=== PATIENT | male | born 1950 | race Caucasian/White ===

== ENCOUNTER 2017-05-18 14:46 | Emergency (ER) | payer MEDICARE, OTHER ==
--- NOTE | 2017-05-18 15:45 | ER PHYSICIAN DOCUMENTATION ---
Physician Documentation [facility] Name:Abe Still Age:67 yrs Sex:Male :1950 Arrival Date:05/18/2017 Time:14:46 Bed6 Private MD:Nguyễn Bearden ED, John Disposition: 05/18/17 15:36 Discharged to Home/Self Care. Impression: Lung Contusion. - Condition is Good. - Discharge Instructions: CONTUSION Chest Wall - CHEST WALL CONTUSION. - Medical Reconciliation form form. - Follow up: Nguyễn Bearden MD; When: As needed; Reason: Continuance of care. - Problem is new. - Symptoms have improved. HPI: 05/18 15:43 This 67 yrs old Male presents to ER via Private Vehicle with complaints of jm Back Pain. 15:43 The patient presents with pain that is acute, and an injury. The symptoms are located jm in the right subscapular area. Onset: The symptoms/episode began/occurred 2 hour(s) ago. The problem was sustained from a direct blow, during a fall. Modifying factors: the patient symptoms are aggravated by any movement, bending. Severity of symptoms: in the emergency department the symptoms have improved, moderately, after ibuprofen. The patient has not experienced similar symptoms in the past. Pt here to get looked at after he suffered a fall while standing on the toilet. Pt thinks he hit the side of the bathtub when he fell, injuring his R chest/back. He's having trouble locating the pain after the ibuprofen. Pt also twisted his neck, but that too is feeling better. . Historical: - Allergies: Erythromycin; - Home Meds: 1. losartan 50 mg oral tab 1 tab once daily 2. Acid Controller 10 mg oral tab 1 tab once daily as needed 3. ibuprofen 200 mg oral cap 1 cap every 4-6 hours as needed - PMHx: [place] virus; Enlarged Prostate; Dyslipidemia; GOUT; Hypertension; CATARACTS; GERD; BPH; Allergic rhinitis; OTITIS MEDIA; - PSHx: TONSILLECTOMY; Ear Surgery; - Tetanus: < 10 years. - Ebola Screening: : Patient negative for fever greater than or equal to 101.5 degrees Fahrenheit, and additional compatible Ebola Virus Disease symptoms. Patient denies exposure to infectious person. Patient denies travel to an Ebola-affected area in the 21 days before illness onset. . - Immunization history: Pneumococcal vaccine is up to date, Flu Vaccine < 1 year. - Social history: Smoking status: Patient states former smoker of tobacco. ROS: 15:45 Constitutional: Negative for fever. jm 15:45 Cardiovascular: Positive for chest pain, with movement, of the right lateral anterior chest and right lateral posterior chest. 15:45 Back: Positive for injury or acute deformity. 15:45 Skin: Positive for ecchymosis. 15:45 Neuro: Negative for dizziness, headache, loss of consciousness, numbness, weakness. 15:45 All other systems are negative. Exam: 15:45 Constitutional: The patient appears alert, awake. 15:45 Eyes: Periorbital structures: appear normal, Pupils: equal, round, and reactive to light and accomodation, Extraocular movements: intact throughout. 15:45 Neck: External neck: tenderness, that is mild, of the right mid cervical area, C-spine: appears grossly normal, Thyroid: appears normal. 15:45 Cardiovascular: Rate: normal, Rhythm: regular. 15:45 Respiratory: Respirations: normal, Breath sounds: are normal. 15:45 Back: pain, that is mild, of the right subscapular area, CVA tenderness, is absent. 15:45 Musculoskeletal/extremity: Circulation is intact in all extremities. Weight bearing: able to fully bear weight. 15:45 Neuro: Mentation: is normal, Memory: is normal, Cranial nerves: CN II- XII are normal as tested, Cerebellar function: normal finger to nose testing, Motor: strength is normal, Sensation: is normal, Gait: is steady. 15:45 Psych: Behavior/mood is pleasant, cooperative, Affect is calm. Vital Signs: 15:05 BP 143 / 69; Pulse 77; Resp 16; Temp 97.9(TE); Pulse Ox 91% on R/A; Weight 74.84 kg; lp Height 5 ft. 5 in. (165.10 cm); Pain 2/10; 15:43 BP 140 / 64; Pulse 76; Resp 16; Pulse Ox 92% on R/A; lp 15:05 Body Mass Index 27.46 (74.84 kg, 165.10 cm) lp MDM: 14:51 Patient medically screened. 15:00 Differential diagnosis: contusion. Data reviewed: vital signs, nurses notes, radiologic jm studies, and as a result, I will discharge patient. Counseling: I had a detailed discussion with the patient and/or guardian regarding: the historical points, exam findings, and any diagnostic results supporting the discharge/admit diagnosis, the need for outpatient follow up, with the patient's primary care provider. ED course: Xray looks good. Only lateral neck pain noted. DC home. . 05/19 15:05 Order name: RIBS UNI; 2[place] [id number] EDMS Dispensed Medications: No medications were administered Signatures: Crystal Bradshaw, RN RN Cyrus Vides MD MD jm Hofsess, Rachel
--- NOTE | 2017-05-18 15:45 | ER NURSING DOCUMENTATION ---
Nurse's Notes [facility] Name:Abe Still Age:67 yrs Sex:Male :1950 Arrival Date:05/18/2017 Time:14:46 Bed6 Private MD:Nguyễn Bearden Diagnosis:Lung Contusion Presentation: 05/18 14:49 Acuity: JOEL 3 rh 14:56 Presenting complaint: Patient states: Patient fell off of the toilet after standing on lp the toilet seat and it broke. Patient fell backwards hitting his right shoulder blade and the back of his head. Denies any loss of consciousness. Transition of care: Home. Notified ED Physician of Rush Natarajan notified. 14:56 Method Of Arrival: Private Vehicle lp Triage Assessment: 15:04 General: Appears in no apparent distress, Behavior is appropriate for age. Pain: lp Complains of pain in right subscapular area. Musculoskeletal: Circulation, motion, and sensation intact Capillary refill < 3 seconds Tenderness present in right subscapular area. Injury Description: Fall. Historical: - Allergies: Erythromycin; - Home Meds: 1. losartan 50 mg oral tab 1 tab once daily 2. Acid Controller 10 mg oral tab 1 tab once daily as needed 3. ibuprofen 200 mg oral cap 1 cap every 4-6 hours as needed - PMHx: [place] virus; Enlarged Prostate; Dyslipidemia; GOUT; Hypertension; CATARACTS; GERD; BPH; Allergic rhinitis; OTITIS MEDIA; - PSHx: TONSILLECTOMY; Ear Surgery; - Tetanus: < 10 years. - Ebola Screening: : Patient negative for fever greater than or equal to 101.5 degrees Fahrenheit, and additional compatible Ebola Virus Disease symptoms. Patient denies exposure to infectious person. Patient denies travel to an Ebola-affected area in the 21 days before illness onset. . - Immunization history: Pneumococcal vaccine is up to date, Flu Vaccine < 1 year. - Social history: Smoking status: Patient states former smoker of tobacco. Screenin:06 Infectious Disease Risk None. Abuse screen: Denies threats or abuse. Denies injuries lp from another. Nutritional screening: No deficits noted. Assessment: 15:06 See Triage Assessment done by same RN. lp Vital Signs: 15:05 BP 143 / 69; Pulse 77; Resp 16; Temp 97.9(TE); Pulse Ox 91% on R/A; Weight 74.84 kg; lp Height 5 ft. 5 in. (165.10 cm); Pain 2/10; 15:43 BP 140 / 64; Pulse 76; Resp 16; Pulse Ox 92% on R/A; lp 15:05 Body Mass Index 27.46 (74.84 kg, 165.10 cm) lp ED Course: 14:48 Patient arrived in ED. ds 14:48 Nguyễn Bearden MD is Private Physician. ds 14:49 Triage completed. rh 14:56 Crystal Bradshaw, MANDY is Primary Nurse. lp 14:59 Cyrus Beverly MD is Attending Physician. jm 15:[address] Beverly notified. lp 15:06 Valuables Remains with patient Patient has correct armband on for positive lp identification. Placed in gown. Bed in low position. Call light in reach. 15:36 Nguyễn Bearden MD is Referral Physician. sherlyn Administered Medications: No medications were administered Outcome: 15:36 Discharge ordered by . 15:43 Discharged to home ambulatory. lp 15:43 Condition: good 15:43 Instructed on discharge instructions, follow up and referral plans. medication usage. 15:44 Patient left the ED. lp 07 11:10 Discharge F/U Call: Spoke with: patient. Overall Care on a scale of 1-10 with 10 tg being the best care, you rate our care as: Other comments: Appreciative of care in ED, feeling sore, but managing well with ibuprofen. Signatures: Hamlet Jeter RN RN tg Crystal Bradshaw RN RN lp Srot, Patricia, Reg Reg ds Cyrus Beverly MD MD jm Hofsess, Rachel rh
--- NOTE | 2017-05-19 12:05 | RADIOLOGY REPORT ---
Multiple views of the right ribs demonstrate no displaced fracture, hemothorax or pneumothorax. Right lung field is clear. IMPRESSION: No displaced injury is identified. Occult nondisplaced rib fractures are not excluded. If clinically indicated, further evaluation and/or follow-up may be of benefit. MTDD
== END 2017-05-18 15:45 | disposition home or self-care (01) ==
LOC: ER 14:46
DX: S27.329A Contusion of lung, unspecified, initial encounter (principal); S29.9XXA Unspecified injury of thorax, initial encounter; M54.2 Cervicalgia; W18.12XA Fall from or off toilet with subsequent striking against object, initial encounter; Y92.012 Bathroom of single-family (private) house as the place of occurrence of the external cause; I10 Essential (primary) hypertension; Z79.899 Other long term (current) drug therapy
CPT/HCPCS: 71100; 99281; 99283